=== PATIENT | male | born 1970 | race Caucasian/White ===

== ENCOUNTER 2016-12-01 16:48 | Emergency (ER) | payer OTHER ==
[~2016-12-01] VITALS: Ht 180.3 cm; Wt 110.0 kg
[~2016-12-01 16:48] MED LIST: IBUP-103 PO; LVT/20 PO; NAPR1TAB9 PO; PANT40TA PO
[2016-12-01 16:51] VITALS: TEMP 36.8; Ht 180.3 cm; Wt 110.0 kg
[2016-12-01] MEDS ORDERED: KETOROLAC TROMETHAMINE 30 MG/ML VIAL IV STA (17:17)
[2016-12-01] MEDS ORDERED: ONDANSETRON 4MG OD TAB PO ONE (17:30)
--- NOTE | 2016-12-01 17:43 | EMERGENCY ROOM VISIT NOTE ---
History Report prepared by Debbie: Sandra Valencia Under the Supervision of: Dr. Salvatore Mehta M.D. First contact with patient: 17:07 Chief Complaint: BACK INJURY Stated Complaint: BACK/HIP PAIN, INJURY History of Present Illness The patient is a 46 year old male who presents to the Emergency Room with complaints of worsening back pain beginning this morning. The patient states that he had a trauma injury a few years ago to his back. Since then he has chronic back pain and states he typically rates his daily pain as 3-4 in severity. About 10 days ago his pain worsened from his usual chronic severity when he was lifting heavy items at work. Since then his pain has continued to be worse. Today he went to close the truck door and felt a sharp pain in his back. The patient was seen at [facility] before coming to the ED. He notes that the pain is mainly in his right back and left hip also. He denies back surgery history, fall, urinary symptoms, or fever. Source of History: patient Onset: this morning Position: back Timing: worsening Associated Symptoms: No fevers, No urinary symptoms Note: Patient has hip pain. Review of Systems See HPI for pertinent positives & negatives. A total of 10 systems reviewed and were otherwise negative. Past Medical & Surgical Medical Problems: (1) Spinal fracture (2) Stomach problems Family History No pertinent family history Social History Smoking Status: Current Every Day Smoker Marital Status: in relationship Housing Status: lives with family Occupation Status: employed Current/Historical Medications Scheduled Prednisone (Prednisone), 0 PO DAILY Vardenafil (Levitra), 20 MG PO UD Scheduled PRN Oxycodone Ir (Roxicodone Ir), 1-2 TAB PO Q4H PRN for Pain Allergies Coded Allergies: Penicillins (Verified Allergy, Unknown, unk, 07/18/14) hospitalized for reaction as a child Physical Exam Vital Signs Date Time Temp Pulse Resp B/P Pulse Ox O2 Delivery O2 Flow Rate FiO2 12/01/16 19:51 20 126/82 94 12/01/16 16:51 36.8 87 18 128/88 96 Room Air Physical Exam GENERAL: Patient is in no acute distress. HEENT: No acute trauma, normocephalic atraumatic, mucous membranes moist, no nasal congestion, no scleral icterus. NECK: No stridor, no adenopathy, no meningismus, trachea is midline. LUNGS: Clear to auscultation bilaterally, no wheeze, no rhonchi, breath sounds equal. HEART: Without murmurs gallops or rubs, regular rate and rhythm. ABDOMEN: Soft, nontender, bowel sounds positive, no hernias, no peritonitis. BACK: Tender to lower thoracic spine, pain worsens with movement. EXTREMITIES: No cyanosis or edema, full range of motion of all the joints without pain or difficulty, no signs for acute trauma. NEUROLOGIC: Oriented x 3, no acute motor or sensory deficits, no focal weakness. 2/4 patellar and Achilles reflex bilaterally. SKIN: No rash, no jaundice, no diaphoresis. Medical Decision & Procedures ER Provider Diagnostic Interpretation: MRI results as stated below per my review and radiologist interpretation: MRI THORACIC SPINE WITHOUT CLINICAL HISTORY: Severe back pain PRIOR STUDIES: None TECHNIQUE: MR scanning of the thoracic spine was performed using multiple pulse sequences. No gadolinium was administered. FINDINGS: There are old T8, and T9 wedge compression fractures. There are no areas of marrow edema to indicate an acute fracture. No thoracic cord lesions are visualized. There is a T12-L1 disc bulge. There is no spinal stenosis. No paraspinal masses are visualized. IMPRESSION: 1. No thoracic cord lesions identified 2. No acute fractures 3. Old T8 and T9 wedge compression fractures 4. T12-L1 disc bulge Electronically signed by: Nehemiah Land M.D. 12/01/2016 7:41 PM Dictated Date/Time: 12/01/2016 7:37 PM MRI LUMBAR SPINE W/O CONTRAST CLINICAL HISTORY: Back pain TECHNIQUE: Sagittal and axial T1, T2 and STIR images were obtained. COMPARISON STUDY: No previous studies for comparison. OBSERVATIONS: The vertebral bodies and posterior elements appear intact. There is no abnormal bony signal present to suggest a marrow replacement process. There is a T12-L1 disc bulge. No axial images were acquired through this level L1-2: There is a mild circumferential disc bulge. There is no significant spinal or foraminal stenosis L2-3: No disc protrusions or extrusions. No evidence of spinal canal or neural foraminal compromise. L3-4: There is a mild circumferential disc bulge. There is minimal flattening of the anterior thecal sac. There is a right lateral annular fissure. There is no significant foraminal narrowing L4-5: There is a small broad-based central disc protrusion with mild spinal canal narrowing. There is no significant foraminal narrowing L5-S1: There is a right paracentral disc protrusion. There is right-sided foraminal narrowing.. The conus medullaris and cauda equina appear normal. IMPRESSION: 1. Small right paracentral disc protrusion at the L5-S1 level with secondary right-sided foraminal narrowing 2. Disc bulges at the T12-L1, L1-L2, L3-L4, and and small broad-based disc protrusion at the L4-5 level. Minor spinal canal narrowing at the L3-4, and L4-5 levels. Electronically signed by: Nehemiah Land M.D. 12/01/2016 8:05 PM Dictated Date/Time: 12/01/2016 7:59 PM Laboratory Results 12/01/16 17:34 Red Blood Count 5.30, Mean Corpuscular Volume 91.3, Mean Corpuscular Hemoglobin 31.9, Mean Corpuscular Hemoglobin Concent 34.9, Mean Platelet Volume 11.7, Neutrophils (%) (Auto) 64.5, Lymphocytes (%) (Auto) 29.2, Monocytes (%) (Auto) 5.0, Eosinophils (%) (Auto) 0.7, Basophils (%) (Auto) 0.3, Neutrophils # (Auto) 7.15, Lymphocytes # (Auto) 3.24, Monocytes # (Auto) 0.55, Eosinophils # (Auto) 0.08, Basophils # (Auto) 0.03 12/01/16 17:34 Test 12/01/16 17:34 12/01/16 19:55 White Blood Count 11.08 K/uL (4.8-10.8) Red Blood Count 5.30 M/uL (4.7-6.1) Hemoglobin 16.9 g/dL (14.0-18.0) Hematocrit 48.4 % (42-52) Mean Corpuscular Volume 91.3 fL (80-100) Mean Corpuscular Hemoglobin 31.9 pg (25-34) Mean Corpuscular Hemoglobin Concent 34.9 g/dl (32-36) Platelet Count 245 K/uL (130-400) Mean Platelet Volume 11.7 fL (7.4-10.4) Neutrophils (%) (Auto) 64.5 % Lymphocytes (%) (Auto) 29.2 % Monocytes (%) (Auto) 5.0 % Eosinophils (%) (Auto) 0.7 % Basophils (%) (Auto) 0.3 % Neutrophils # (Auto) 7.15 K/uL (1.4-6.5) Lymphocytes # (Auto) 3.24 K/uL (1.2-3.4) Monocytes # (Auto) 0.55 K/uL (0.11-0.59) Eosinophils # (Auto) 0.08 K/uL (0-0.5) Basophils # (Auto) 0.03 K/uL (0-0.2) RDW Standard Deviation 43.2 fL (36.4-46.3) RDW Coefficient of Variation 13.0 % (11.5-14.5) Immature Granulocyte % (Auto) 0.3 % Immature Granulocyte # (Auto) 0.03 K/uL (0.00-0.02) Erythrocyte Sedimentation Rate 16 mm/hr (0-14) Anion Gap 10.0 mmol/L (3-11) Est Creatinine Clear Calc Drug Dose 125.1 ml/min Estimated GFR () 112.4 Estimated GFR (Non- 97.0 BUN/Creatinine Ratio 12.1 (10-20) Calcium Level 9.1 mg/dl (8.5-10.1) Urine Color YELLOW Urine Appearance CLEAR (CLEAR) Urine pH 6.5 (4.5-7.5) Urine Specific [place] 1.013 (1.000-1.030) Urine Protein NEG (NEG) Urine Glucose (UA) NEG (NEG) Urine Ketones NEG (NEG) Urine Occult Blood NEG (NEG) Urine Nitrite NEG (NEG) Urine Bilirubin NEG (NEG) Urine Urobilinogen NEG (NEG) Urine Leukocyte Esterase NEG (NEG) Laboratory results reviewed by me. Medications Administered Medications (Trade) Dose Ordered Sig/Keith Route Start Time Stop Time Status Last Admin Dose Admin Ondansetron HCl (Zofran Odt) 4 mg ONE ONCE PO 12/01/16 17:30 12/01/16 17:31 DC 12/01/16 17:53 4 MG Hydromorphone HCl (Dilaudid Inj) 1 mg Q30M PRN IV 12/01/16 17:30 12/15/16 17:29 12/01/16 21:02 1 MG Ketorolac Tromethamine (Toradol Inj) 30 mg NOW STAT IV 12/01/16 17:17 12/01/16 17:20 DC 12/01/16 17:53 30 MG Dexamethasone Sodium Phosphate (Decadron Inj) 10 mg NOW ONCE IV 12/01/16 20:45 12/01/16 20:46 DC 12/01/16 21:01 10 MG Oxycodone HCl (Roxicodone Immediate Rel 5MG Home Pack) 1 homepack UD ONCE PO 12/01/16 21:00 12/01/16 21:01 DC 12/01/16 21:01 1 HOMEPACK ED Course 1707: The patient was evaluated in room C8. A complete history and physical exam was performed. 1716: Toradol Inj 30 mg IV. 1729: Dilaudid Inj 1 mg IV, Zofran Odt 4 mg PO. 1737: I spoke with Dr. Guy - Surgery about the patient. He said to call back if something is surgical, if not have the patient follow up in the office after speaking with Workers Comp. 2036: I reevaluated the patient. 2044: Decadron Inj 10 mg IV. 2049: Reevaluated the patient. Discussed results and discharge instructions: He verbalized understanding and agreement. The patient is ready for discharge. Medical Decision The patient is a 46 year old male who presents to the ED with complaints of back pain. Differential diagnoses considered include compression fracture, herniated disc, infection, acute on chronic pain, nerve impingement, muscle spasm, cord compression. There is a very mild leukocytosis, this could be consistent with infection or possibly just his pain. No worrisome anemia. Sedimentation rate is not significantly elevated making ongoing inflammation/infection less likely. There was no significant electrolyte abnormality or kidney failure. Urinalysis does not show blood and there is no infection. Thoracic and lumbar spine MRIs show old changes and some subtle disc herniations, no acute surgical pathology seen. No acute fractures noted. The patient presents with mid back pain, really lower thoracic back pain. He has issues with chronic pain in his back and has been doing some recent activity which seems to have aggravated his back discomfort. He presents here with severe pain. He did receive IV Toradol, IV saline, IV Decadron and IV Dilaudid. He received IV Zofran, he does feel improved. I did briefly discuss his case with the on-call spinal surgeon. The patient will be discharged with outpatient follow-up through Workmen's Compensation and possibly spinal surgery if referred by the Workmen's Compensation group. Nothing acutely surgical found this evening. It appears the patient may have aggravated a chronic back issue. Patient is being discharged on a prednisone taper, oxycodone, rest and outpatient follow-up. [place] Drug Monitoring Program Search Results: patient reviewed within database, no issues identified Consults Time Called: 1734 Consulting Physician: Dr. Guy - Espinoza Returned Call: [phone] Guy - Espinoza about the patient. He said to call back if something is surgical, if not have the patient follow up in the office after speaking with Workers Comp. Impression Primary Impression: Acute thoracic back pain Scribe Attestation The scribe's documentation has been prepared under my direction and personally reviewed by me in its entirety. I confirm that the note above accurately reflects all work, treatment, procedures, and medical decision making performed by me. Departure Information Dispostion Home / Self-Care Prescriptions Oxycodone Ir (Roxicodone Ir) 5 Mg Tab 1-2 TAB PO Q4H Y for Pain, #15 TAB Prov: Salvatore Mehta M.D. 12/01/16 Prednisone (Prednisone) 20 Mg Tab 0 PO DAILY, #18 TAB 3 DAILY FOR 3 DAYS, THEN 2 DAILY FOR 3 DAYS, THEN 1 DAILY FOR 3 DAYS. Prov: Salvatore Mehta M.D. 12/01/16 Referrals Matthias Thompson M.D. (PCP) Forms HOME CARE DOCUMENTATION FORM, IMPORTANT VISIT INFORMATION Patient Instructions My [facility] Additional Instructions steroids as directed oxy ir 1-2 tab every 4 hours for severe pain rest no lifting follow with workmans comp for further care/instructions Dr. Guy was the spinal surgeon I spoke to this evening return for worsening symptoms
[2016-12-01 17:50] LABS: BASO % 0.3 %; BASO ABS # 0.03 K/uL (0-0.2); COMPLETE YES; EOS % 0.7 %; HEMATOCRIT 48.4 % (42-52); IG% 0.3 %; LYMPH % 29.2 %; LYMPH ABS # 3.24 K/uL (1.2-3.4); MEAN CELL VOLUME 91.3 fL (80-100); MEAN CORPUSCULAR HEMOGLOBIN 31.9 pg (25-34); MEAN CORPUSCULAR HGB CONC 34.9 g/dl (32-36); MEAN PLATELET VOLUME 11.7 fL (7.4-10.4); NEUT % 64.5 %; PLATELET COUNT 245 K/uL (130-400); WHITE BLOOD COUNT 11.08 K/uL (4.8-10.8)
[2016-12-01] MEDS: HYDROmorphone INJ 2 MG/ML SYR/VIAL IV PRN ×2 (17:55→21:02)
[2016-12-01 18:08] LABS: BUN/CREATININE RATIO 12.1 (10-20); CALCIUM 9.1 mg/dl (8.5-10.1); CREATININE 0.95 mg/dl (0.60-1.40); POTASSIUM 3.8 mmol/L (3.5-5.1)
--- NOTE | 2016-12-01 19:43 | DIAGNOSTIC IMAGING REPORT ---
MRI THORACIC SPINE WITHOUT CLINICAL HISTORY: Severe back pain PRIOR STUDIES: None TECHNIQUE: MR scanning of the thoracic spine was performed using multiple pulse sequences. No gadolinium was administered. FINDINGS: There are old T8, and T9 wedge compression fractures. There are no areas of marrow edema to indicate an acute fracture. No thoracic cord lesions are visualized. There is a T12-L1 disc bulge. There is no spinal stenosis. No paraspinal masses are visualized. IMPRESSION: 1. No thoracic cord lesions identified 2. No acute fractures 3. Old T8 and T9 wedge compression fractures 4. T12-L1 disc bulge Electronically signed by: Nehemiah Land M.D. 12/01/2016 7:41 PM Dictated Date/Time: 12/01/2016 7:37 PM
--- NOTE | 2016-12-01 20:06 | DIAGNOSTIC IMAGING REPORT ---
MRI LUMBAR SPINE W/O CONTRAST CLINICAL HISTORY: Back pain TECHNIQUE: Sagittal and axial T1, T2 and STIR images were obtained. COMPARISON STUDY: No previous studies for comparison. OBSERVATIONS: The vertebral bodies and posterior elements appear intact. There is no abnormal bony signal present to suggest a marrow replacement process. There is a T12-L1 disc bulge. No axial images were acquired through this level L1-2: There is a mild circumferential disc bulge. There is no significant spinal or foraminal stenosis L2-3: No disc protrusions or extrusions. No evidence of spinal canal or neural foraminal compromise. L3-4: There is a mild circumferential disc bulge. There is minimal flattening of the anterior thecal sac. There is a right lateral annular fissure. There is no significant foraminal narrowing L4-5: There is a small broad-based central disc protrusion with mild spinal canal narrowing. There is no significant foraminal narrowing L5-S1: There is a right paracentral disc protrusion. There is right-sided foraminal narrowing.. The conus medullaris and cauda equina appear normal. IMPRESSION: 1. Small right paracentral disc protrusion at the L5-S1 level with secondary right-sided foraminal narrowing 2. Disc bulges at the T12-L1, L1-L2, L3-L4, and and small broad-based disc protrusion at the L4-5 level. Minor spinal canal narrowing at the L3-4, and L4-5 levels. Electronically signed by: Nehemiah Land M.D. 12/01/2016 8:05 PM Dictated Date/Time: 12/01/2016 7:59 PM
[2016-12-01 20:08] LABS: URINE APPEARANCE CLEAR (CLEAR); URINE BILIRUBIN NEG (NEG); URINE COLOR YELLOW; URINE NITRITE NEG (NEG); URINE PH 6.5 (4.5-7.5); URINE SPECIFIC GRAVITY 1.013 (1.000-1.030); UROBILINOGEN NEG (NEG); ZZUR CULT IF INDIC CLEAN CATCH NO
[2016-12-01 20:10] LABS: MANUAL MICROSCOPIC REQUIRED? NO; REVIEW REQ? NO
[2016-12-01] MEDS ORDERED: DEXAMETHASONE SOD INJ 10 MG/ML VIAL IV ONE (20:45)
[2016-12-01] MEDS ORDERED: OXYC1TAB3 PO (20:52)
[2016-12-01] MEDS ORDERED: PRED20TA PO (20:52)
[2016-12-01] MEDS ORDERED: OXYCODONE IR HOME PACK PO ONE (21:00)
[2016-12-01 21:09] VITALS: BP 119/85; PULSE 90; O2SAT 99
== END 2016-12-01 21:11 | disposition home or self-care (01) ==
LOC: C.EDB 16:50 → C.EDC 21:11
DX: M54.6 Pain in thoracic spine (principal); G89.29 Other chronic pain; F17.200 Nicotine dependence, unspecified, uncomplicated; Z87.81 Personal history of (healed) traumatic fracture; Z88.0 Allergy status to penicillin

== ENCOUNTER → 2017-08-03 | Outpatient (CLI) | payer OTHER ==
[~2017-08-03] MED LIST changes: -IBUP-103 PO; -NAPR1TAB9 PO; -PANT40TA PO
[2017-08-03 13:39] LABS: CHOLESTEROL/HDL RATIO 5.9; THYROID STIMULATING HORMONE 1.21 uIu/ml (0.300-4.500)
== END | disposition home or self-care (01) ==
LOC: C.LABMFLN 08:46
PROVIDERS: ATTEND Family Medicine
DX: Z13.1 Encounter for screening for diabetes mellitus (principal); L80 Vitiligo

== ENCOUNTER → 2017-11-15 | Outpatient (CLI) | payer OTHER | END | disposition home or self-care (01) | LOC: C.PATHSPEC 17:12 | PROVIDERS: ATTEND Urology | DX: Z30.2 Encounter for sterilization (principal) ==